=== PATIENT | female | born 2000 | race African-American/Black ===

== ENCOUNTER 2018-02-16 21:25 | Emergency (ER) | payer OTHER ==
[~2018-02-16] VITALS: Ht 162.6 cm; Wt 74.4 kg
[~2018-02-16 21:25] MED LIST: KETO10TA2 PO; TAMS0.4C PO
[2018-02-17] MEDS ORDERED: KETO10TA2 PO (06:36)
== END 2018-02-17 06:49 | disposition home or self-care (01) ==
LOC: ER 21:25
DX: N39.0 Urinary tract infection, site not specified (principal)

== ENCOUNTER 2019-08-10 07:39 | Emergency (ER) | payer OTHER ==
[~2019-08-10] VITALS: Ht 162.6 cm; Wt 77.1 kg
[2019-08-10] MEDS ORDERED: ZANTAC150 M3 PO (07:50)
== END 2019-08-10 13:43 | disposition home or self-care (01) ==
LOC: ER 07:39
DX: R16.1 Splenomegaly, not elsewhere classified (principal); R10.32 Left lower quadrant pain

== ENCOUNTER 2022-08-14 12:52 | Emergency (ER) | payer OTHER ==
[~2022-08-14] VITALS: Ht 162.6 cm; Wt 78.9 kg
[~2022-08-14 12:52] MED LIST changes: +ZANTAC150 M3 PO
[2022-08-14] MEDS ORDERED: AMOX-CLAV 875-1 EACH PO (15:01)
[2022-08-14] MEDS ORDERED: KETO10TA2 PO (15:01)
== END 2022-08-14 15:13 | disposition home or self-care (01) ==
LOC: ER 12:52
DX: J03.90 Acute tonsillitis, unspecified (principal); Z20.822 Contact with and (suspected) exposure to COVID-19

== ENCOUNTER 2022-09-11 18:52 | Emergency (ER) | payer OTHER ==
[~2022-09-11] VITALS: Ht 162.6 cm; Wt 77.1 kg
[~2022-09-11 18:52] MED LIST changes: +AMOX-CLAV 875-1 EACH PO
== END 2022-09-11 20:36 | disposition home or self-care (01) ==
LOC: ER 18:52
DX: J06.9 Acute upper respiratory infection, unspecified (principal)